=== PATIENT | male | born 1965 | race Caucasian/White ===

== ENCOUNTER 2017-01-20 05:34 | Day surgery (SDC) | payer BC, OTHER ==
[~2017-01-20] VITALS: Ht 195.6 cm; Wt 127.0 kg
--- NOTE | ~2017-01-20 | S ---
[facility] [place] [address] [place] [address] SURGICAL PATH RPT PROCEDURE Name: MICHELE WASHINGTON II Room #: [facility] M.R.#: [id number] Admission: 01/20/17 Date of : 69 Discharge: 01/20/17 Report #: [id number] Path Case #: [id number] PATHOLOGY REPORT COLLECTION DATE: 01/20/2017 RECEIVED DATE: 01/20/2017 SUBMITTING PHYS: Dr. Timothy Aburto OTHER PHYS: Dr. Graham De Souza SPECIMEN(S) RECEIVED: A.Hernia sac * * * * * * * * * * * * FINAL DIAGNOSIS: Incarcerated ventral umbilical hernia sac, repair: - Dense fibrovascular and fibroadipose connective tissue with congestion and repair. (IUV:pit; 01/22/2017) PATHOLOGIST: Saskia Joyce M.D. REPORT ELECTRONICALLY SIGNED BY: Saskia Joyce M.D. DATE/TIME: 01/22/2017 15:24 * * * * * * * * * * * * GROSS PATHOLOGY: Received in formalin labeled "Michele Washington II, hernia sac," is a piece of fibroadipose tissue measuring 9.6 x 7.2 x 2.9 cm. No nodules or lesions are identified. [employer] Cabinet Attendant tissue is submitted in cassette A1. (CAA; 01/21/2017) CLINICAL HISTORY: Incarcerated ventral umbilical hernia INITIAL CPT CODE(S): A; 06418 Professional services performed by [facility] at [facility] [address], [place] [address] Technical services performed by [facility] at [address] [place] [address], [address] [address]. [facility] [address] [place] [address] SURGICAL PATH RPT PROCEDURE Name: MICHELE WASHINGTON II Room #: DEP [facility] Jayce#: [id number] Admission: 01/20/17 Date of : 69 Discharge: 01/20/17 Report #: [id number] Path Case #: [id number] [address] PHONE: [phone] DIRECTOR: Yg Camara M.D. * * * END OF REPORT * * *
[~2017-01-20 05:34] MED LIST: IBUPROFEN 200200 M1 PO
[2017-01-20 06:58] VITALS: BP 136/79
[2017-01-20] MEDS ORDERED: CLARITIN5 MG PO (09:29)
[2017-01-20] MEDS ORDERED: NORCO 5-325 TA1 EACH PO (12:01)
[2017-01-20 12:10] VITALS: BP 136/79
== END 2017-01-20 12:34 | disposition home or self-care (01) ==
LOC: OR 05:34 → TBA 05:34 → OR 12:00
DX: K42.0 Umbilical hernia with obstruction, without gangrene (principal); K21.9 Gastro-esophageal reflux disease without esophagitis; Z98.890 Other specified postprocedural states
CPT/HCPCS: 50010; 50101; 50386; 50417; 50621; 54118; 56524; 56525; 56526; 62110; 62850; 70005

== ENCOUNTER → 2020-02-15 | Outpatient (CLI) | payer BC, OTHER ==
[~2020-02-15] MED LIST changes: +CLARITIN5 MG PO; +NORCO 5-325 TA1 EACH PO
== END ==
LOC: LAB 08:27
PROVIDERS: ATTEND Family Medicine
DX: Z01.812 Encounter for preprocedural laboratory examination (principal); Z11.59 Encounter for screening for other viral diseases

== ENCOUNTER → 2020-03-19 | Outpatient (CLI) | payer BC, OTHER | LOC: SJCVCIMAG 03-15 10:28 → SJCVC 15:01 → SJCVCIMAG 15:01 | PROVIDERS: ATTEND Internal Medicine | DX: I35.1 Nonrheumatic aortic (valve) insufficiency (principal); Z87.891 Personal history of nicotine dependence ==

== ENCOUNTER → 2020-04-01 | Outpatient (CLI) | payer BC, OTHER ==
[~2020-04-01] MED LIST changes: +DOXYCYCLINE HYC50 MG PO; +ZYRTEC 10 MG TA10 MG PO
== END ==
LOC: LAB 08:54
PROVIDERS: ATTEND Internal Medicine
DX: Z01.812 Encounter for preprocedural laboratory examination (principal); Z20.828 Contact with and (suspected) exposure to other viral communicable diseases

== ENCOUNTER → 2020-04-03 | Outpatient (CLI) | payer BC, OTHER ==
[~2020-04-03] VITALS: Ht 195.6 cm; Wt 117.9 kg
[2020-04-03 07:17] VITALS: BP 130/84
--- NOTE | 2020-04-03 08:55 | EKG ---
[facility] [place] [address] [place] [address] ELECTROCARDIOGRAM REPORT Name: MICHELE ABEL II Room #: REG [facility].#: [id number] Admission: 04/03/20 Attend Phys: Remi Camarena MD, Discharge: Date of : 69 Report #: [id number] THIS REPORT FOR: cc: Graham De Souza MD, Rene P. MD Lundgren,Remi Kimball MD [facility] ~ THIS REPORT FOR: //name// [facility] Test Date: 2020-04-03 Test Time: 07:36:41 Pat Name: MICHELE ABEL Department: Room: Gender: M Japanese Professor: : 1965 Requested By: Remi Camarena Order Number: [id number] MD: Remi Camarena Measurements Intervals [place] Rate: 71 P: 53 SC: 298 QRS: 44 QRSD: 115 T: 44 QT: 419 QTc: 456 Interpretive Statements Sinus rhythm Frequent premature ventricular complexes Prolonged SC interval No previous ECG available for comparison Electronically Signed On 04-03-2020 8:55:03 CDT by Remi Camarena [email or web address] <ELECTRONICALLY SIGNED> By: Remi Camarena MD, [facility] 04/03/20 0855 Remi Camarena MD, [facility] /EPI
--- NOTE | 2020-04-03 09:01 | TEE ---
[facility] [place] [address] TRANSESOPHAGEAL ECHOCARDIOGRAM Name: MICHELE ABEL II Room #: REG [facility]#: [id number] Admission: 04/03/20 Attend Phys: Remi Camarena MD, Discharge: Date of : 69 Report #: [id number] THIS REPORT FOR: cc: Graham De Souza MD, Rene P. MD Lundgren, Craig H. MD [facility] ~ APPROVED REPORT Study performed: 04/03/2020 07:43:29 EXAM: Transesophageal Echocardiogram Status: routine BSA: 2.55 HR: 73 bpm BP: 129/89 mmHg Rhythm: NSR Other Information Study Quality: Good Indications Aortic stenosis. Procedure After obtaining informed consent, patient underwent transesophageal echo in the [employer]. Type of Sedation : Conscious Sedation Sedation was administered by LOIS Hoffman. Sedation was achieved intravenously with: Versed (5) Fentanyl (100) Transesophageal probe was inserted and advanced into esophagus without difficulty by Remi Camarena MD. Echo enhancement indication: R/O Septal defect. Echo enhancement agent administered: Agitated Saline The OLIVER was performed without complications. Throughout the procedure, the blood pressure, pulse oximetry, cardiac rhythm, and rate were monitored. The patient tolerated the procedure without adverse effects. Recovery from conscious sedation was uneventful and vital signs were stable. Left Ventricle The left ventricle is normal size. There is normal LV segmental wall motion. Left ventricular hypertrophy noted. Left ventricular systolic [facility] [address] [place] [address] TRANSESOPHAGEAL ECHOCARDIOGRAM Name: MICHELE ABEL II Room #: REG [facility]#: [id number] Admission: 04/03/20 Attend Phys: Remi Camarena, Discharge: Date of : 69 Report #: [id number] function is normal. LVEF is 60-65%. Right Ventricle The right ventricle is normal size. The right ventricular systolic function is normal. Atria Left atrium is mildly dilated. No thrombus is visualized in the left atrium or appendage. No shunting noted by constrast bubble injection. The right atrium size is normal. Aortic Valve Aortic valve is heavily calcified. Trace aortic regurgitation. Severe aortic stenosis. (Peak gradient of 113mmHg, Mean of 76mmHg; Per transthoracic echo 09/2019) Mitral Valve The mitral valve is normal in structure. There is no mitral valve regurgitation noted. No evidence of mitral valve stenosis. Tricuspid Valve The tricuspid valve is normal in structure. Trace tricuspid regurgitation. Pulmonic Valve The pulmonary valve is normal in structure. There is no pulmonic valvular regurgitation. Great Vessels The aortic root is normal in size. The ascending aorta is mildly dilated. IVC is normal in size and collapses >50% with inspiration. Pericardium There is no pericardial effusion. <Conclusion> Left ventricular systolic function is normal. There is normal LV segmental wall motion. LVEF is 60-65%. No shunting noted by constrast bubble injection. No thrombus is visualized in the left atrium or appendage. Aortic valve is heavily calcified. Severe aortic stenosis. (Peak gradient of 113mmHg, Mean of 76mmHg; Per transthoracic echo 09/2019) Trace aortic regurgitation. [facility] [employer] [place] [address] TRANSESOPHAGEAL ECHOCARDIOGRAM Name: MICHELE ABEL II Room #: REG [facility]#: [id number] Admission: 04/03/20 Attend Phys: Remi Camarena, Discharge: Date of : 69 Report #: [id number] The mitral valve is normal in structure. No mitral valve regurgitation There is no pericardial effusion. <ELECTRONICALLY SIGNED> By: Remi Camarena MD, FACC 04/03/20900 0 0 Remi Camarena MD, FACC /INF
--- NOTE | 2020-04-03 09:09 | CATHLAB ---
[facility] [place] [address] INVASIVE PROCEDURE REPORT Name: COLTENMICHELE PATRICIA Marialuisa HEATH Room #: REG [facility]#: [id number] Admission: 04/03/20 Attend Phys: Remi Camarena MD, Discharge: Date of : 69 Report #: [id number] THIS REPORT FOR: cc: Graham De Souza MD, Rene P. MD Lundgren, Craig H. MD [facility] ~ APPROVED REPORT Study performed: 04/03/2020 07:55:38 Patient Details Patient Status: Out-Patient Room #: The patient is a 54 year-old male Event Personnel Remi Camarena Physical Security Specialist, Hillary Bates RN RN, Joy Wilson RTR ScrubAramis Sherra RTR Monitor Procedures Performed Art Access - R femoral artery* Supravalvular Aortography Injection [id number] ISVA Coronary Angiography Only [id number] CORANG 20617 , Left Ventriculogram Indication Chest pain Procedure Narrative The Right Groin^ was infiltrated with 1% Lidocaine subcutaneous anesthesia. A PINNACLE 6FR Sheath #[id number] sheath was inserted into the RFA^. Coronary angiography was performed using coronary diagnostic catheters. The right coronary system was accessed and visualized with a JR4 catheter. The left coronary system was accessed and visualized with a JL4.5 catheter. Closure device was deployed with a 6 Fr MYNXGRIP 6/7F #[id number]. The patient tolerated the procedure well and there were no complications associated with the procedure. There was no hematoma. Intraoperative Conscious Sedation No additional sedation following OLIVER Fluoro Time: 3.10 minutes Dose: DAP 7014.00 cGycm2 901 mGy Contrast Type and Amount: Omnipaque 105 ml [facility] [place] [address] [place] [address] INVASIVE PROCEDURE REPORT Name: MICHELE ABEL II Room #: [facility]#: [id number] Admission: 04/03/20 Attend Phys: Remi Camarena, Discharge: Date of : 69 Report #: [id number] Coronary Angiography The patient's coronary anatomy is right dominant. [place] Artery Percent Stenosis Aortography demonstrated a densely calcified aortic valve, possibly bileaflet. The proximal ascending aorta did not appear to be dilated. Diagnostic Cath Left Main Normal left main LAD Normal left anterior descending Diagonal 1 Normal first diagonal branch Circumflex Normal, nondominant circumflex OM1 Single marginal branch, angiographically normal Right Coronary The right coronary was angiographically normal. Dominant. R PDA Large, normal posterior descending artery. Ramus Large ramus branch, angiographically normal Left Ventriculography Left Ventriculography was not performed. Ejection Fraction was 60-65% based off patient's Echocardiogram. Hemodynamics The aortic pressure is 116/72 mmHg with a mean of 89 mmHg. Conclusion 1. Severe calcific aortic stenosis. Probable bicuspid aortic valve 2. Normal left main 3. Normal coronary vasculature. Right coronary dominant circulation Recommendations Valve Surgery <ELECTRONICALLY SIGNED> By: Remi Camarena MD, [facility] 04/03/20908 8 8 Remi Camarena MD, FAC /INF
== END | disposition home or self-care (01) ==
LOC: CATH 06:46
PROVIDERS: ATTEND Internal Medicine
DX: R07.9 Chest pain, unspecified (principal); I35.0 Nonrheumatic aortic (valve) stenosis; R00.2 Palpitations; E78.5 Hyperlipidemia, unspecified; K21.9 Gastro-esophageal reflux disease without esophagitis; Z98.890 Other specified postprocedural states; Z79.899 Other long term (current) drug therapy; Z87.891 Personal history of nicotine dependence; Z82.49 Family history of ischemic heart disease and other diseases of the circulatory system